=== PATIENT | female | born 2005 | race Caucasian/White ===

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

== ENCOUNTER 2025-05-21 15:06 | Emergency (ER) | payer BC ==
--- NOTE | 2025-05-21 15:16 | ED ---
Abdominal Pain HPI - General Source: patient, family Mode of arrival: ambulatory Limitations: no limitations <Yara Ocasio - Last Filed: 05/21/25 20:37> <Diaz Merritt - Last Filed: 05/25/25 15:33> - General Chief Complaint: Abdominal Pain Stated Complaint: Abd Pain Time Seen by Provider: 05/21/25 15:08 - History of Present Illness Initial Comments: 20F here for abdominal pain. Reported that at 10am this morning she started to have acute hypogastric abdominal pain that was cramping, nonradiating 5/10 at max intensity. Associated body aches. Reported that she was having fever and chills yesterday but improved with Tylenol. Denied chills, nausea, vomiting, diarrhea, constipation, recent travel or sick contacts. 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 Sexually active with 1 partner, on control. (Yara Ocasio) - Related Data Home Medications Medication Instructions Recorded Confirmed ARIPiprazole [Abilify] 5 mg PO HS 03/12/22 03/12/22 Albuterol Inhaler [Ventolin Hfa 1 - 2 puff INHALATION RT-Q4H PRN 03/12/22 03/12/22 Inhaler] Ascorbic Acid [Vitamin C] 1,000 mg PO DAILY 03/12/22 03/12/22 Cholecalciferol [Vitamin D3 (25 25 mcg PO DAILY 03/12/22 03/12/22 Mcg = 1000 Iu)] Cyanocobalamin (Vitamin B-12) 1,000 mcg PO DAILY 03/12/22 03/12/22 [Vitamin B-12] FLUoxetine HCL [PROzac] 40 mg PO DAILY 03/12/22 03/12/22 Fluticasone Propion/Salmeterol 2 puff INHALATION RT-BID 03/12/22 03/12/22 [Advair Hfa 115-21 Mcg Inhaler] L.acidoph,Paracasei, B.lactis 1 cap PO DAILY 03/12/22 03/12/22 [Probiotic] Lisdexamfetamine Dimesylate 50 mg PO DAILY 03/12/22 03/12/22 [Vyvanse] [place] Carbonate 150 mg PO HS 03/12/22 03/12/22 Loratadine [Claritin] 10 mg PO DAILY 03/12/22 03/12/22 Montelukast [Singulair] 10 mg PO DAILY 03/12/22 03/12/22 Pantoprazole [Protonix] 40 mg PO DAILY 03/12/22 03/12/22 Previous Rx's Medication Instructions Recorded Nitrofurantoin Monohyd/M-Cryst 100 mg PO Q12HR #10 cap 05/21/25 [Macrobid] Allergies Allergy/AdvReac Type Severity Reaction Status Date / Time No Known Allergies Allergy Verified 03/12/22 08:24 Review of Systems ROS Other: All systems not noted in ROS Statement are negative. <Yara Ocasio - Last Filed: 05/21/25 20:37> ROS Other: All systems not noted in ROS Statement are negative. <Diaz Merritt - Last Filed: 05/25/25 15:33> ROS Statement: Those systems with pertinent positive or pertinent negative responses have been documented in the HPI. Past Medical History Past Medical History: Asthma Additional Past Medical History / Comment(s): anorexia History of Any Multi-Drug Resistant Organisms: None Reported Past Surgical History: No Surgical Hx Reported Additional Past Surgical History / Comment(s): heart ligation surgery as Past Psychological History: ADD/ADHD, Depression Smoking Status: Never smoker Past Alcohol Use History: None Reported Past Drug Use History: None Reported <Yara Ocasio - Last Filed: 05/21/25 20:37> General Exam Limitations: no limitations <Yara Ocasio - Last Filed: 05/21/25 20:37> - General Exam Comments Initial Comments: Physical examination: Vital signs reviewed General: non toxic, no distress, appears at stated age Head: atraumatic, normocephalic, symmetric Mouth: no lip lesion, mucus membranes moist Cardiovascular: S1S2 tachycardic, no murmur Lungs: CTA bilateral, no rhonchi, no rales, no accessory muscle use Abdominal: soft, nondistended, tender to deep palpation in bilateral lower quadrants, no guarding, BS appreciated Ext: muscle strength 5 out of 5 in all 4 extremities grossly, no gross muscle atrophy, no contractures, positive dorsalis pedis pulse bilateral, no edema Neuro: no gross focal neuro deficits Psych: Alert and oriented x3, appropriate affect and mood (Yara Ocasio) Course <Yara Ocasio - Last Filed: 05/21/25 20:37> Vital Signs 05/21/25 05/21/25 05/21/25 15:10 15:30 18:05 Temperature 100.2 F H 102.1 F H 101.0 F H Pulse Rate 136 H 132 H 91 Respiratory 20 18 17 Rate Blood Pressure 120/74 110/55 O2 Sat by Pulse 99 97 97 Oximetry 05/21/25 05/21/25 19:36 21:05 Temperature 100.1 F H Pulse Rate 94 90 Respiratory 18 18 Rate Blood Pressure 117/70 122/78 O2 Sat by Pulse 97 99 Oximetry - Reevaluation(s) Reevaluation #1: 05/21/25 18:39 Patient's symptoms improved. Heart rate has improved. (Yara Ocasio) Reevaluation #2: 05/21/25 20:38 Given Toradol and Rocephin. Patient symptoms have improved and her fever has improved. (Yara Ocasio) Medical Decision Making - Lab Data Result diagrams: 05/21/25 16:10 05/21/25 16:33 <Yara Ocasio - Last Filed: 05/21/25 20:37> - Lab Data Result diagrams: 05/21/25 16:10 05/21/25 16:33 <Diaz Merritt - Last Filed: 05/25/25 15:33> - Medical Decision Making Was pt. sent in by a medical professional or institution (, PA, VESSEL SCRAPPER, urgent care, hospital, or long term...) When possible be specific @ -No Did you speak to anyone other than the patient for history (EMS, parent, family, police, friend...)? What history was obtained from this source @ -Mother at bedside Did you review nursing and triage notes (agree or disagree)? Why? @ -I reviewed and agree with nursing and triage notes Were old charts reviewed (outside hosp., previous admission, EMS record, old EKG, old radiological studies, urgent care reports/EKG's, long term records)? Report findings @ -No old charts were reviewed Differential Diagnosis? @ -Differential Abdominal Pain Women: Appendicitis, Cholecystitis, diverticulosis, ischemic bowel, pancreatitis, hepatitis, UTI, gastroenteritis, AAA, incarcerated hernia, bowel obstruction, constipation, inflammatory bowel, hepatitis, peptic ulcer disease, splenic infarction, perforated viscus, vulvitis, ovarian torsion, PID, kidney stone, placenta abruption, this is not meant to be an all-inclusive list EKG interpreted by me (3pts min.). @ -As above X-rays interpreted by me (1pt min.). @ -None done CT interpreted by me (1pt min.). @ -None done U/S interpreted by me (1pt. min.). @ -None done What testing was considered but not performed or refused? (CT, X-rays, U/S, labs)? Why? @ -None What meds were considered but not given or refused? Why? @ -None Did you discuss the management of the patient with other professionals (professionals i.e. , PA, VESSEL SCRAPPER, lab, RT, psych nurse, social services assistant, cage tender, teacher, patrol officer, foster care case manager)? Give summary @ -Dr. Merritt, supervising physician Was smoking cessation discussed for >3mins.? @ -No Was critical care preformed (if so, how long)? @ -No Were there social determinants of health that impacted care today? How? (Homelessness, low income, unemployed, alcoholism, drug addiction, transportation, low edu. Level, literacy, decrease access to med. care, [facility] [facility], rehab)? @ -No Was there de-escalation of care discussed even if they declined (Discuss DNR or withdrawal of care, Hospice)? DNR status @ -No What co-morbidities impacted this encounter? (DM, HTN, Smoking, COPD, CAD, Cancer, CVA, ARF, Chemo, Hep., AIDS, mental health diagnosis, sleep apnea, morbid obesity)? @ -None Was patient admitted / discharged? Hospital course, mention meds given and route, prescriptions, significant lab abnormalities, going to OR and other pertinent info. @ -Discharge. 2 L fluid bolus, acetaminophen p.o. ordered. CBC showed elevated white count. Urinalysis showed cystitis. Other labs unremarkable. Given ceftriaxone and tramadol once. Symptoms improved throughout ED stay. Sent home on Macrobid for 5 days. Advised to follow-up with PCP. Work note given and is cleared to return to work on May 23. Undiagnosed new problem with uncertain prognosis? @ -No Drug Therapy requiring intensive monitoring for toxicity (Heparin, Nitro, Insulin, Cardizem)? @ -No Were any procedures done? @ -No Diagnosis/symptom? @ -Acute cystitis Acute, or Chronic, or Acute on Chronic? @ -Acute Uncomplicated (without systemic symptoms) or Complicated (systemic symptoms)? @ -Uncomplicated Side effects of treatment? @ -No Exacerbation, Progression, or Severe Exacerbation? @ -No Poses a threat to life or bodily function? How? (Chest pain, [place], SD, pneumonia, PE, COPD, DKA, ARF, appy, cholecystitis, CVA, Diverticulitis, Homicidal, Suicidal, threat to staff... and all critical care pts) @ -No (Yara Ocasio) I personally saw the patient and performed the critical portion of the service. I discussed the patient care with the Dr Ocasio. I directed management, care planning and final disposition of the patient. This includes, but not limited to, review of all lab work, radiological studies, EKG's, consultations, vital signs, and nursing notes. EKG interpreted by me (3pts min.) @ [as above] X-Rays interpreted by me (1 pt min.) @ [none] CT interpreted by me ( 1pt min.) @ [none] U/S interpreted by me (1 pt min.) @ [none] Critical care time of [0] minutes excluding separately billable procedures was spent in conjunction with critical care activities provided by the Resident and Attending simultaneously. I was present during [no procedures] for all critical portions of the procedure and as immediately available to furnish service during the entire procedure. (Diaz Merritt) - Lab Data Lab Results 05/21/25 05/21/25 05/21/25 Range/Units 16:10 16:33 16:33 WBC 20.77 H (4.50-10.00) 10*3/uL RBC 4.51 (4.10-5.20) 10*6/uL Hgb 14.0 (12.0-15.0) g/dL Hct 42.0 (37.2-46.3) % MCV 93.1 (80.0-97.0) fL MCH 31.0 (27.0-32.0) pg MCHC 33.3 (32.0-37.0) g/dL Plt Count 301 (140-440) 10*3/uL MPV 10.6 (9.5-12.2) fL Immature Gran % (Auto) 0.4 % Neutrophils % 90.4 % Lymphocytes % 5.1 % Monocytes % 3.6 % Eosinophils % 0.1 % Basophils % 0.4 % Immature Gran # 0.08 H (0.00-0.04) 10*3/uL Neutrophils # 18.78 H (1.80-7.70) 10*3/uL Lymphocytes # 1.06 (0.90-5.00) 10*3/uL Monocytes # 0.74 (0.20-1.00) 10*3/uL Eosinophils # 0.03 L (0.04-0.35) 10*3/uL Basophils # 0.08 (0.00-0.10) 10*3/uL Sodium (137-145) mmol/L Potassium (3.5-5.1) mmol/L Chloride (98-107) mmol/L Carbon Dioxide (22-30) mmol/L Anion Gap mmol/L BUN (7-17) mg/dL Creatinine (0.52-1.04) mg/dL Est GFR (CKD-EPI)AfAm (>60 ml/min/1.73 sqM) Est GFR (CKD-EPI)NonAf (>60 ml/min/1.73 sqM) Glucose (74-99) mg/dL Plasma Lactic Acid Adam (0.7-2.0) mmol/L Calcium (8.4-10.2) mg/dL Total Bilirubin (0.2-1.3) mg/dL AST (14-36) U/L ALT (4-34) U/L Alkaline Phosphatase (38-126) U/L Total Protein (6.3-8.2) g/dL Albumin (3.5-5.0) g/dL Amylase (30-110) U/L Lipase (23-300) U/L Urine Color Light Yellow Urine Appearance Turbid H (Clear) Urine pH 5.5 (5.0-8.0) Ur Specific [place] 1.020 (1.001-1.035) Urine Protein 1+ H (Negative) Urine Glucose (UA) Negative (Negative) Urine Ketones 2+ H (Negative) Urine Blood Small H (Negative) Urine Nitrite Negative (Negative) Urine Bilirubin Negative (Negative) Urine Urobilinogen <2.0 (<2.0) mg/dL Ur Leukocyte Esterase Large H (Negative) Urine RBC 31 H (0-5) /hpf Urine WBC >182 H (0-5) /hpf Urine WBC Clumps Rare H (None) /hpf Ur Squamous Epith Cells 54 H (0-4) /hpf Urine Mucus Occasional H (None) /hpf Urine HCG, Qual Not Detected (Not Detectd) 05/21/25 05/21/25 Range/Units 16:33 16:33 WBC (4.50-10.00) 10*3/uL RBC (4.10-5.20) 10*6/uL Hgb (12.0-15.0) g/dL Hct (37.2-46.3) % MCV (80.0-97.0) fL MCH (27.0-32.0) pg MCHC (32.0-37.0) g/dL Plt Count (140-440) 10*3/uL MPV (9.5-12.2) fL Immature Gran % (Auto) % Neutrophils % % Lymphocytes % % Monocytes % % Eosinophils % % Basophils % % Immature Gran # (0.00-0.04) 10*3/uL Neutrophils # (1.80-7.70) 10*3/uL Lymphocytes # (0.90-5.00) 10*3/uL Monocytes # (0.20-1.00) 10*3/uL Eosinophils # (0.04-0.35) 10*3/uL Basophils # (0.00-0.10) 10*3/uL Sodium 140 (137-145) mmol/L Potassium 4.3 (3.5-5.1) mmol/L Chloride 105 (98-107) mmol/L Carbon Dioxide 22 (22-30) mmol/L Anion Gap 13 mmol/L BUN 11 (7-17) mg/dL Creatinine 0.84 (0.52-1.04) mg/dL Est GFR (CKD-EPI)AfAm >90 (>60 ml/min/1.73 sqM) Est GFR (CKD-EPI)NonAf >90 (>60 ml/min/1.73 sqM) Glucose 84 (74-99) mg/dL Plasma Lactic Acid Adam 1.0 (0.7-2.0) mmol/L Calcium 9.7 (8.4-10.2) mg/dL Total Bilirubin 0.4 (0.2-1.3) mg/dL AST 19 (14-36) U/L ALT 20 (4-34) U/L Alkaline Phosphatase 83 (38-126) U/L Total Protein 7.3 (6.3-8.2) g/dL Albumin 4.5 (3.5-5.0) g/dL Amylase 51 (30-110) U/L Lipase 64 (23-300) U/L Urine Color Urine Appearance (Clear) Urine pH (5.0-8.0) Ur Specific [place] (1.001-1.035) Urine Protein (Negative) Urine Glucose (UA) (Negative) Urine Ketones (Negative) Urine Blood (Negative) Urine Nitrite (Negative) Urine Bilirubin (Negative) Urine Urobilinogen (<2.0) mg/dL Ur Leukocyte Esterase (Negative) Urine RBC (0-5) /hpf Urine WBC (0-5) /hpf Urine WBC Clumps (None) /hpf Ur Squamous Epith Cells (0-4) /hpf Urine Mucus (None) /hpf Urine HCG, Qual (Not Detectd) - EKG Data EKG Comments: Sinus tachycardia with a rate of 134 bpm, normal axis, QRS duration 77 ms, QTc 410ms, no ST-T changes (Yara Ocasio) Disposition Is patient prescribed a controlled substance at d/c from ED?: No Time of Disposition: 20:35 <Yara Ocasio - Last Filed: 05/21/25 20:37> <Diaz Merritt - Last Filed: 05/25/25 15:33> Clinical Impression: Cystitis Disposition: HOME SELF-CARE Condition: Good Instructions (If sedation given, give patient instructions): Urinary Tract Infection in Women (ED) Additional Instructions: Every disease is a spectrum and a small chance still exists that a serious condition could develop, for this reason, please monitor yourself closely for new, changing or worsening symptoms, symptoms that persist beyond another 72 hours, nausea, vomiting that is intractable, intolerable abdominal pain, hematuria, dysuria, worsening fever, chills, inability to tolerate/keep down flu ids or your medications, inability to follow up with outpatient providers as instructed and should you experience these symptoms or should you have any further concerns for your wellbeing please return to the ED or call 911 immediately. PLEASE call your primary care physician as soon as possible to arrange / discuss plan for followup appointment. Appointment in the next 1-3 days is strongly enc ouraged if possible. PLEASE let us know here before you leave if there is anything further we can do to be of any assistance. Take care and feel Better! Prescriptions: Nitrofurantoin Monohyd/M-Cryst [Macrobid] 100 mg PO Q12HR #10 cap Referrals: Aneudy Kamara MD [Primary Care Provider] - 1-2 days
[2025-05-21] MEDS: SODIUM CHLORIDE 0.9% 1,000 ML IV ONE ×2 (15:56→19:32)
[2025-05-21] MEDS: ACETAMINOPHEN TAB 325 MG TAB PO PRN (15:56)
[2025-05-21 16:16] LABS: Basophils # (A) 0.08 10*3/uL (0.00-0.10); Basophils % (A) 0.4 %; Eosinophils # (A) 0.03 10*3/uL (0.04-0.35); Eosinophils % (A) 0.1 %; HCT 42.0 % (37.2-46.3); HGB 14.0 g/dL (12.0-15.0); Lymphocytes # (A) 1.06 10*3/uL (0.90-5.00); Lymphocytes % (A) 5.1 %; MCH 31.0 pg (27.0-32.0); MCHC 33.3 g/dL (32.0-37.0); MCV 93.1 fL (80.0-97.0); Monocytes # (A) 0.74 10*3/uL (0.20-1.00); Monocytes % (A) 3.6 %; Neutrophils # (A) 18.78 10*3/uL (1.80-7.70); Neutrophils % (A) 90.4 %; Platelet Count 301 10*3/uL (140-440); RBC 4.51 10*6/uL (4.10-5.20); RDW 11.8 % (11.5-14.5); WBC 20.77 10*3/uL (4.50-10.00)
[2025-05-21 16:55] LABS: Bilirubin,Urine Negative (Negative); Blood,Urine Small (Negative); Color,Urine Light Yellow; Glucose,Urine (UA) Negative (Negative); Ketones,Urine 2+ (Negative); Leukocyte Esterase,Urine Large (Negative); Mucus,Urine Occasional /hpf; Nitrite,Urine Negative (Negative); PH, Urine 5.5 (5.0-8.0); Protein,Urine 1+ (Negative); RBC,Urine 31 /hpf (0-5); Specific Gravity,Urine 1.020 (1.001-1.035); Squamous Epithelial Cell,Urine 54 /hpf (0-4); Urobilinogen,Urine <2.0 mg/dL (<2.0); WBC,Urine >182 /hpf (0-5)
[2025-05-21 16:59] LABS: ALT 20 U/L (4-34); AST 19 U/L (14-36); African American GFR (CKD) >90 (>60 ml/min/1.73 sqM); Albumin 4.5 g/dL (3.5-5.0); Alkaline Phosphatase 83 U/L (38-126); Amylase 51 U/L (30-110); Anion Gap 13 mmol/L; Blood Urea Nitrogen 11 mg/dL (7-17); Calcium 9.7 mg/dL (8.4-10.2); Carbon Dioxide 22 mmol/L (22-30); Chloride 105 mmol/L (98-107); Glucose 84 mg/dL (74-99); Lipase 64 U/L (23-300); Non-African American GFR(CKD) >90 (>60 ml/min/1.73 sqM); Potassium 4.3 mmol/L (3.5-5.1); Sodium 140 mmol/L (137-145); Total Protein 7.3 g/dL (6.3-8.2)
[2025-05-21] MEDS: KETOROLAC 15 MG/ML 1 ML VIAL IVP STA (19:29)
[2025-05-21 19:37] VITALS: RESP 18; TEMP 100.1
[2025-05-21 21:07] VITALS: BP 122/78; PULSE 90
== END 2025-05-21 21:05 | disposition home or self-care (01) ==
LOC: EC 15:06
DX: N30.90 Cystitis, unspecified without hematuria (principal); R10.32 Left lower quadrant pain; R10.31 Right lower quadrant pain
CPT/HCPCS: 36415; 93005; 80053; 82150; 83605; 83690; 85025; 81001; 81025; 87040; 87086; 99284; 96365; 96375; 96361; J0696; J1885